=== PATIENT | male | born 1985 | race Caucasian/White ===

== ENCOUNTER 2017-03-17 07:24 | Inpatient (IN) | payer BC ==
[~2017-03-17] VITALS: Ht 177.8 cm; Wt 67.6 kg
[~2017-03-17 07:24] MED LIST: CALC-55 PO; LACT1CAP11 PO; LOPE2CAP94 PO; LORA-445 PO; MULT-224 PO; TAMS-11 PO
[2017-03-17] MEDS ORDERED: BUPIVACAINE/PF 0.5% ONE (07:32)
[2017-03-17] MEDS ORDERED: LACTATED RINGERS 1,000 ML IV SCH (07:39)
[2017-03-17] MEDS: ACETAMINOPHEN 500 MG TABLET PO STA ×2 (07:41→10:17)
[2017-03-17] MEDS: GABAPENTIN 300 MG CAPSULE PO STA ×2 (07:41→10:17)
[2017-03-17] MEDS ORDERED: FENTANYL PF 250 MCG/5ML ONE (07:54)
[2017-03-17] MEDS ORDERED: MIDAZOLAM 1 MG/ML, 2ML ONE (07:54)
[2017-03-17 08:24] LABS: BASOPHILS # (AUTO) 0.03 x10^3/uL (0-0.1); BASOPHILS % (AUTO) 0 % (0-1); EOSINOPHILS % (AUTO) 4 % (1-7); LYMPHOCYTES # (AUTO) 2.05 x10^3/uL (1-3.4); LYMPHOCYTES % (AUTO) 24 % (22-44); MD NO; MEAN CORPUSCULAR HEMOGLOBIN 24.4 pg (27.5-34.5); MEAN CORPUSCULAR HGB CONC 32.9 g/dL (33.2-36.2); MEAN CORPUSCULAR VOLUME 74.2 fL (81-97); MEAN PLATELET VOLUME 6.8 fL (7.4-10.4); MONOCYTES # (AUTO) 0.43 x10^3/uL (0.2-0.8); MONOCYTES % (AUTO) 5 % (2-9); NEUTROPHILS # (AUTO) 5.71 x10^3/uL (1.8-6.8); NEUTROPHILS % (AUTO) 67 % (42-75); PLATELET COUNT 434 x10^3/uL (130-400); RED BLOOD COUNT 6.56 x10^6/uL (4.38-5.82); RED CELL DISTRIBUTION WIDTH 18.1 % (9.4-14.8)
[2017-03-17] MEDS ORDERED: ONDANSETRON 2MG/ML, 2ML ONE (08:58)
[2017-03-17] MEDS ORDERED: ROCURONIUM 10 MG/ML,10ML ONE (08:58)
[2017-03-17] MEDS ORDERED: PROPOFOL 10 MG/ML, 20ML ONE (08:58)
[2017-03-17] MEDS ORDERED: DEXAMETHASONE 4 MG/ML, 5ML ONE (08:58)
[2017-03-17] MEDS ORDERED: SUCCINYLCHOLINE 20 MG/ML, 10ML ONE (08:58)
[2017-03-17] MEDS ORDERED: METRONIDAZOLE PMX 500MG/100ML 100 ML ONE (09:13)
[2017-03-17] MEDS ORDERED: OXYcodone 5 MG/5 ML ORAL.SOL UDC ONE (10:08)
[2017-03-17] MEDS ORDERED: ACETAMINOPHEN 650 MG/20.3 ML UDC ONE (10:08)
[2017-03-17] MEDS ORDERED: FENTANYL PF 100 MCG/2ML ONE (10:08)
[2017-03-17] MEDS: FENTANYL PF 100 MCG/2ML IV PRN ×2 (10:09→10:19)
[2017-03-17] MEDS ORDERED: ACETAMINOPHEN 325 MG TABLET PO PRN (10:30)
[2017-03-17] MEDS ORDERED: HYDROmorphone 2 MG/ML, 1ML IV PRN (10:30)
[2017-03-17] MEDS ORDERED: HYDROcodone/APAP 7.5-325MG/15ML UDC PO PRN (10:30)
[2017-03-17] MEDS ORDERED: ONDANSETRON 2MG/ML, 2ML IVPush PRN (10:30)
[2017-03-17] MEDS ORDERED: OXYcodone 5 MG/5 ML ORAL.SOL UDC PO PRN (10:30)
[2017-03-17] MEDS ORDERED: PROMETHAZINE 12.5 MG SUPP PR PRN (10:30)
[2017-03-17] MEDS ORDERED: HYDROmorphone 2 MG/ML, 1ML ONE (10:34)
[2017-03-17 12:56] VITALS: BP 122/68
[2017-03-17] MEDS ORDERED: LORazepam 2 MG/ML, 1ML IVPush PRN (13:00)
[2017-03-17] MEDS ORDERED: OXYcodone IR 5MG TABLET PO PRN (13:00)
[2017-03-17] MEDS ORDERED: HYDROmorphone 1 MG/ML, 1ML IVPush PRN (13:00)
[2017-03-17] MEDS ORDERED: ONDANSETRON 2MG/ML, 2ML IV PRN (13:00)
[2017-03-17] MEDS ORDERED: DIPHENHYDRAMINE 50 MG/ML, 1ML IVPush PRN (13:00)
[2017-03-17] MEDS ORDERED: HALOPERIDOL 5 MG/ML IVPush PRN (13:00)
[2017-03-17] MEDS ORDERED: SCOPOLAMINE PATCH, 1.5MG PATCH.TD72 TD PRN (13:00)
[2017-03-17] MEDS ORDERED: LORazepam 1MG TABLET PO PRN (13:00)
[2017-03-17] MEDS ORDERED: DEXAMETHASONE 4 MG/ML, 1ML IVPush PRN (13:00)
[2017-03-17] MEDS: ACETAMINOPHEN 500 MG TABLET PO SCH ×2 (13:03→21:52)
[2017-03-17] MEDS: KETOROLAC 30 MG/1 ML IVPush SCH ×2 (13:03→18:35)
[2017-03-17] MEDS: D5%-0.45NACL+KCL 20MEQ 1,000 ML IV SCH (13:36)
[2017-03-17 19:22] VITALS: BP 115/75
[2017-03-18] MEDS: KETOROLAC 30 MG/1 ML IVPush SCH ×3 (01:08→13:00)
[2017-03-18 01:10] VITALS: BP 116/77
[2017-03-18] MEDS ORDERED: ENOXAPARIN 40 MG/0.4 ML SQ SCH (03:00)
[2017-03-18] MEDS: ACETAMINOPHEN 500 MG TABLET PO SCH ×2 (03:33→09:44)
[2017-03-18 03:35] LABS: BASOPHILS # (AUTO) 0.02 x10^3/uL (0-0.1); BASOPHILS % (AUTO) 0 % (0-1); EOSINOPHILS % (AUTO) 0 % (1-7); LYMPHOCYTES % (AUTO) 10 % (22-44); MD NO; MEAN CORPUSCULAR HEMOGLOBIN 24.1 pg (27.5-34.5); MEAN CORPUSCULAR HGB CONC 32.3 g/dL (33.2-36.2); MEAN CORPUSCULAR VOLUME 74.7 fL (81-97); MEAN PLATELET VOLUME 7.4 fL (7.4-10.4); MONOCYTES # (AUTO) 0.38 x10^3/uL (0.2-0.8); MONOCYTES % (AUTO) 3 % (2-9); NEUTROPHILS # (AUTO) 10.21 x10^3/uL (1.8-6.8); NEUTROPHILS % (AUTO) 87 % (42-75); PLATELET COUNT 457 x10^3/uL (130-400); RED BLOOD COUNT 5.41 x10^6/uL (4.38-5.82)
[2017-03-18 03:46] LABS: ANION GAP 11 mmol/L (5-15); CALCIUM 8.6 mg/dL (8.5-10.1); CHLORIDE 104 mmol/L (98-107); CREATININE 1.05 mg/dL (0.7-1.3)
[2017-03-18 07:54] VITALS: BP 117/61
[2017-03-18] MEDS: D5%-0.45NACL+KCL 20MEQ 1,000 ML IV SCH (09:00)
[2017-03-18 12:52] VITALS: BP 109/68
== END 2017-03-18 13:45 | disposition home or self-care (01) | DRG 331 ==
LOC: ORIP 07:24 → 4NOR 11:14 → EDSTATUS 11:30
PROVIDERS: ADMIT Surgery; ATTEND Surgery
PROC: 0DBB0ZZ Excision of Ileum, Open Approach (ICD-10-PCS; principal; 2017-03-17 09:30)
DX: Z43.2 Encounter for attention to ileostomy (principal)
CPT/HCPCS: 36415; 80048; 85025; 88304; J1100; J1170; J1650; J1885; J2250; J2405; J2704; J3010; J3490; J0330; J3480; J7120